=== PATIENT | male | born 1990 | race Caucasian/White ===

== ENCOUNTER 2024-12-30 13:37 | Emergency (ER) | payer BC, SELFPAY ==
--- OUTSIDE RECORDS SUMMARY | 2024-12-30 13:39 | XMS_ITS | Clinical Summary ---
Author Organization [facility] Address [address] [place] [address] Care Team Providers Care Road Crew Member Name Role Phone Wilder Krause MD Primary Care Provider Allergies Active Allergy Reactions Criticality Noted Date Comments Apple (Fruit) Other - Describe In Comment Field 07/09/2023 Gums and mouth itchy Sulfamethoxazole-Tri methoprim Hives 04/11/2021 Medications albuterol HFA (PRO-AIR; VENTOLIN; PROVENTIL) 90 mcg/actuation inhalerIndication s:Cough, unspecified type Inhale 1-2 Puffs by mouth every 4 hours if needed for Shortness Of Breath. 1 Each 1 4 Active Additional Information Patient not taking.Reported on 12/24/2024 dextroamphetamine -amphetamine (Adderall XR) 25 mg Extended-Release capsuleIndication s:Attention deficit hyperactivity disorder (ADHD), unspecified ADHD type Take 1 Capsule (25 mg) by mouth once daily. Active LORATADINE ORAL Take 1 Tablet by mouth each time if needed. Active Active Problems Problem Noted Date Diagnosed Date Attention deficit hyperactivity disorder (ADHD) 01/14/2024 Anxiety and depression 04/11/2021 Encounters Date Type Department Care Team Description 12/24/2024 12:10 PM CDT Ancillary Procedure [facility] [address] [place] [address] 12/24/2024 12:05 PM CDT Ancillary Procedure [facility] [address] [place] [address] 12/24/2024 12:00 PM CDT Office Visit [facility] [address] [place] [address] Baudilio Flores MD Consult (Pain in both wrists Arthralgia) 12/23/2024 11:30 AM CDT Ancillary Procedure [facility] [address] [place] [address] 12/23/2024 9:55 AM CDT Office Visit [facility] [address] [place] [address] Linda Marcus PA Wrist Pain/problem 12/23/2024 E-Consult [facility] [address] [place] [address] Ade Dennison DO 12/23/2024 Travel from Last 3 Months Immunizations Immunization Administration Dates Next Due COVID-19 vaccine (Data Impact-Bio NTech 30mcg/0.3mL) 12YO+ BIVALENT PF, MDV 04/13/2022 COVID-19 vaccine (Pfizer-Bio NTech 30mcg/0.3mL) PF, MDV 04/11/2021 DTP 07/11/1996, 3,1991,1991,1991 HIB PRP-T (ActHIB,Hiberix) 07/19/1992,,1991,1991 INFLUENZA, IIV3 PF (AGE >= 6 MO) 03/27/2024 Influenza, IIV4 04/12/2023, 2,03/17/2021,2017 MMR 07/19/1992 Oral Polio Vaccine 07/11/1996, 3,1991,1991 Tdap 03/23/2021 Family History Medical History Relation Name Comments Hypertension Father Heart failure Maternal Grandfather a t 89 Sudden Paternal Grandfather Relation Name Status Comments Father Maternal Grandfather Paternal Grandfather Social History Tobacco Use Types Packs/Day Years Used Date Smoking Tobacco: Never Smokeless Tobacco: Never Tobacco Cessation:Counseling Given: No Alcohol Use Standard Drinks/Week Comments Yes 0 (1 standard drink = 0.6 oz pur e alcohol) occ PHQ-2 Answer Date Recorded PHQ-2 TOTAL SCORE 0 01/14/2024 Social Connections Answer Date Recorded Do you often feel lonely or isolated from those around you? 0 12/23/2024 Financial Resource Strain Answer Date R ecorded Difficulty of Paying Living Expenses 3 12/23/2024 Difficulty of Paying Living Expenses Not on file 12/23/2024 Food Insecurity Answer Date Recorded Do you worry your food will run out before you are able to buy more? 1 12/23/2024 Transportation Needs Answer Date Record ed Does lack of transportation keep you from medica l appointments? 1 12/23/2024 Does lack of transportation keep you from work, meetings or getting things that you need? 1 12/23/2024 Housing Stability Answer Date Recorded What is your housing situation today? 1 12/23/2024 Utilities Answer Date Recorded Do you have trouble paying f or utilities (for example, heat, electricity, water, phone)? 1 12/23/2024 Sex and Gender Information Value Date Recorded Sex Assigned at Not on file Legal Sex Male 11:30 AM CDT Gender Identity Not on file Sexual Orientation Not on file Obstetrics History Last Filed Vital Signs Vital Sign Reading Time Taken Comments Blood Pressure 134/82 12/24/2024 11:30 AM CDT Pulse 76 12/24/2024 11:30 AM CDT Temperature 36.7 C (98 F) 12/23/2024 9:48 AM CDT Respiratory Rate 20 06/13/2022 12:25 PM PACK WORKER SUPERVISOR Oxygen Saturation 97% 12/23/2024 9:48 AM CDT Inhaled Oxygen Concentration - - Weight 100.7 kg (222 lb) 12/24/2024 11:30 AM CDT Height 186 cm (6' 1.23) 12/24/2024 11:30 AM CDT Body Mass Index 29.11 12/24/2024 11:30 AM CDT Plan of Treatment Upcoming Encounters Date Type Department Care Team (Late st Contact Info) Description 12/31/2024 8:15 AM CDT Ancillary Procedure [facility] [id number] [place] [address] 02/02/2025 8:15 AM CDT Office Visit [facility] [address] [place] [address] Lenin Maxwell PA [address] [place] [address] 06/26/2025 10:30 AM PACK WORKER SUPERVISOR Office Visit [facility] [address] [place] [address] Baudilio Flores MD [address] [place] [address] Health Maintenance Due Date Last Done Comments Hepatitis B series for 19+ (1 of 3 - 19+ 3-dose series) 2010 COVID-19 vaccine series ( season) 2024 04/13/2022, 04/11/2021, 09/02/2020 Depression screening for age 12+ 01/13/2025 01/14/2024, 07/09/2023, 12/21/2021, Additional history exists Influenza Vaccine (#1) 2025 , 04/12/2023, 04/13/2022, Additional history exists BMI (ht and wt on same day) for age 18+ 12/24/2025 12/24/2024, 01/14/2024, 07/09/2023, Additional history exists Tetanus booster 03/23/2031 03/23/2021 HIV for age 15-65 Completed 07/09/2023 Hepatitis C screening for age 18-79 Completed 12/24/2024, 07/09/2023 Pneumococcal series for age 6-49 Aged Out No longer eligible based on patient's age to complete this topic Procedures Procedure Name Priority Date/Time Associated Diagnosis Comments XR SACROILIAC JOINT 3 VIEWS BILATERAL Routine 12/24/2024 12:23 PM CDT Pain in both wrists Arthralgia, unspecified joint Multiple joint pain Chronic low back pain, unspecified back pain laterality, unspecified whether sciatica present XR WRIST 2 VIEWS LEFT Routine 12/24/2024 12:23 PM CDT Pain in both wrists Arthralgia, unspecified joint Multiple joint pain Chronic low back pain, unspecified back pain laterality, unspecified whether sciatica present ANTI HBC Routine 12/24/2024 12:06 PM CDT Pain in both wrists Polyarthralgia Multiple joint pain Chronic low back pain, unspecified back pain laterality, unspecified whether sciatica present ANTI HCV Routine 12/24/2024 12:06 PM CDT Pain in both wrists Polyarthralgia Multiple joint pain Chronic low back pain, unspecified back pain laterality, unspecified whether sciatica present HBSAG (HBS) Routine 12/24/2024 12:06 PM CDT Pain in both wrists Polyarthralgia Multiple joint pain Chronic low back pain, unspecified back pain laterality, unspecified whether sciatica present QUANTIFERON -TB GOLD PLUS 1 TUBE (QUEST) Routine 12/24/2024 12:06 PM CDT Pain in both wrists Polyarthralgia Multiple joint pain Chronic low back pain, unspecified back pain laterality, unspecified whether sciatica present XR HAND 3 VIEWS BILATERAL Routine 12/23/2024 11:35 AM CDT Pain in both wrists Arthralgia, unspecified joint CBC WITH AUTO DIFFERENTIAL Routine 12/23/2024 10:30 AM CDT Arthralgia, unspecified joint BASIC METABOLIC PANEL Routine 12/23/2024 10:30 AM CDT Arthralgia, unspecified joint SEDIMENTATION RATE Routine 12/23/2024 10 :30 AM CDT Arthralgia, unspecified joint C-REACTIVE PROTEIN Routine 12/23/2024 10 :30 AM CDT Arthralgia, unspecified joint RA QUANTITATIVE Routine 12/23/2024 10:30 AM CDT Arthralgia, unspecified joint HLA B 27 DISEASE ASSOCIATION Routine 12/23/2024 10:30 AM CDT Arthralgia, unspecified joint CYCLIC CITRULLINE PEPTIDE Routine 12/23/2024 10:30 AM CDT Arthralgia, unspecified joint ANTI HIV 1/2 Routine 07/09/2023 9:41 AM PACK WORKER SUPERVISOR Screening for HIV (human immunodeficiency virus) from Last 3 Months or Most Recently Relevant to Health Maintenance Results * XR SACROILIAC JOINT 3 VIEWS BILATERAL (12/24/2024 12:23 PM CDT) Anatomical Region Laterality Modality Pelvis, SI JOINTS Digital Radiog georgina 12/24/2024 12:2 3 PM CDT Impressions 12/25/2024 12:01 PM CDT Normal appearance of bilateral sacroiliac joints. No periarticular erosions or bony ankylosis. No fracture. Narrative 12/25/2024 12:01 PM CDT For Patients: As a result of the Cures Act, medical imaging exams and procedure reports are released immediately into your electronic medical record. You may view this report before your referring provider. If you have questions, please contact your health care provider. EXAM: XR SACROILIAC JOINT 3 VIEWS BILATERAL LOCATION: [facility] DATE: 12/24/2024 INDICATION: Pain In Both Wrists Pain In Both Wrists Arthralgia, Unspecified Joint Multiple Joint Pain Chronic Low Back Pain, Unspecified Back Pain Laterality, Unspecified Whether Sciatica Present Chronic Low Back Pain, Unspecified Back Pain Laterality, Unspecified Whether Sciatica Present COMPARISON: None. Procedure Note Ria Joshua MD - 12/25/2024 For Patients: As a result of the Cures Act, medical imagingexams and procedure reports are released immediately into your electronicmedical record. You may view this report before your referring provider.If you have questions, please contact your health care provider. EXAM: XR SACROILIAC JOINT 3 VIEWS BILATERAL LOCATION: [facility] DATE: 12/24/2024 INDICATION: Pain In Both Wrists Pain In Both Wrists Arthralgia,Unspecified Joint Multiple Joint Pain Chronic Low Back Pain, UnspecifiedBack Pain Laterality, Unspecified Whether Sciatica Present Chronic LowBack Pain, Unspecified Back Pain Laterality, Unspecified Whether SciaticaPresent COMPARISON: None. IMPRESSION: Normal appearance of bilateral sacroiliac joints. No periarticularerosions or bony ankylosis. No fracture. Baudilio Flores MD GENERAL IM AGING Final Result * XR WRIST 2 VIEWS LEFT (12/24/2024 12:23 PM CDT) Anatomical Region Laterality Modality WRISTS, WRIST L Digital Radiogra phy 12/24/2024 12:2 3 PM CDT Impressions 12/25/2024 12:01 PM CDT Normal joint spaces and alignment. No fracture. No cortical erosions. Narrative 12/25/2024 12:01 PM CDT For Patients: As a result of the Cures Act, medical imaging exams and procedure reports are released immediately into your electronic medical record. You may view this report before your referring provider. If you have questions, please contact your health care provider. EXAM: XR WRIST 2 VIEWS LEFT LOCATION: [facility] DATE: 12/24/2024 INDICATION: Pain In Both Wrists Pain In Both Wrists Arthralgia, Unspecified Joint Multiple Joint Pain Chronic Low Back Pain, Unspecified Back Pain Laterality, Unspecified Whether Sciatica Present Chronic Low Back Pain, Unspecified Back Pain Laterality, Unspecified Whether Sciatica Present COMPARISON: Bilateral hand radiographs 12/23/2024 Procedure Note Ria Joshua MD - 12/25/2024 For Patients: As a result of the s Act, medical imagingexams and procedure reports are released immediately into your electronicmedical record. You may view this report before your referring provider.If you have questions, please contact your health care provider. EXAM: XR WRIST 2 VIEWS LEFT LOCATION: [facility] DATE: 12/24/2024 INDICATION: Pain In Both Wrists Pain In Both Wrists Arthralgia,Unspecified Joint Multiple Joint Pain Chronic Low Back Pain, UnspecifiedBack Pain Laterality, Unspecified Whether Sciatica Present Chronic LowBack Pain, Unspecified Back Pain Laterality, Unspecified Whether SciaticaPresent COMPARISON: Bilateral hand radiographs 12/23/2024 IMPRESSION: Normal joint spaces and alignment. No fracture. No cortical erosions. Baudilio Flores MD GENERAL IM AGING Final Result * QUANTIFERON??-TB GOLD PLUS 1 TUBE (QUEST) (12/24/2024 12:06 PM CDT) [facility] QUANTIFERON(R)-T B GOLD PLUS, 1 TUBE NEGATIVE NEGATIVE [facility] Comment: Negative test result. M. tuberculosis complex infection unlikely. NIL 0.03 IU/mL [facility] MITOGEN-NIL 8.51 IU/mL [facility] TB1-NIL <0.00 IU/mL [facility] TB2-NIL 0.00 IU/mL [facility] Comment: The Nil tube value reflects the background interferon gamma immune response of the patient's blood sample. This value has been subtracted from the patient's displayed TB and Mitogen results. Lower than expected results with the Mitogen tube prevent false-negative Quantiferon readings by detecting a patient with a potential immune suppressive condition and/or suboptimal pre-analytical specimen handling. The TB1 Antigen tube is coated with the M. tuberculosis-specific antigens designed to elicit responses from TB antigen primed CD4+ helper T-lymphocytes. The TB2 Antigen tube is coated with the M. tuberculosis-specific antigens designed to elicit responses from TB antigen primed CD4+ helper and CD8+ cytotoxic T-lymphocytes. For additional information, please refer to https://education.Lockbox.[employer]/faq/CXR852 (This link is being provided for informational/ educational purposes only.) Blood BLOOD SPECIMEN / Unknown 12/24/2024 12:06 PM CDT 12/24/2024 12:07 PM CDT Narrative [facility] - 12/27/2024 9:18 AM CDT FASTING:YES FASTING: YES Baudilio Flores MD SEND OUTS Final Result Performing Organization Address [facility] Co de Phone Number [employer] [facility] [address] [place] [address], [facility] [address] [place] [address] * HBSAG (HBS) (12/24/2024 12:06 PM CDT) HEPATITIS B SURFACE ANTIGEN NON-REACTI VE NON-REACTI VE [facility] Comment: For additional information, please refer to http://EnergyDeck.Kollabora/faq/OYX066 (This link is being provided for informational/ educational purposes only.) Blood BLOOD SPECIMEN / Unknown 12/24/2024 12:06 PM CDT 12/24/2024 12:07 PM CDT Narrative [facility] - 12/25/2024 2:36 PM CDT FASTING:YES FASTING: YES Baudilio Flores MD SEND OUTS Final Result Performing Organization Address [facility] de Phone Number [employer] [facility] [address] [place] [address], [facility] [address] [place] [address] * ANTI HCV (12/24/2024 12:06 PM CDT) HEPATITIS C ANTIBODY NON-REACTI VE NON-REACT DANIEL [facility] Comment: HCV antibody was non-reactive. There is no laboratory evidence of HCV infection. In most cases, no further action is required. However, if recent HCV exposure is suspected, a test for HCV RNA (test code 82778) is suggested. For additional information please refer to http://EnergyDeck.Kollabora/faq/GPU54k6 (This link is being provided for informational/ educational purposes only.) Blood BLOOD SPECIMEN / Unknown 12/24/2024 12:06 PM CDT 12/24/2024 12:07 PM CDT Narrative [facility] - 12/25/2024 2:36 PM CDT FASTING:YES FASTING: YES Baudilio Flores MD SEND OUTS Final Result Performing Organization Address [facility] de Phone Number [facility] [address] [place] [address], [facility] [address] [facility] [place] [address] * ANTI HBC (12/24/2024 12:06 PM CDT) HEPATITIS B CORE AB TOTAL NON-REACTI VE NON-REACTI VE [facility] Comment: For additional information, please refer to http://education.Kollabora/faq/HID314 (This link is being provided for informational/ educational purposes only.) Blood BLOOD SPECIMEN / Unknown 12/24/2024 12:06 PM CDT 12/24/2024 12:07 PM CDT Narrative [facility] - 12/25/2024 2:36 PM CDT FASTING:YES FASTING: YES Baudilio Flores MD SEND OUTS Final Result Performing Organization Address [facility] de Phone Number [employer] [facility] [address] [place] [address], [facility] [address] [place] [address] * XR HAND 3 VIEWS BILATERAL (12/23/2024 11:35 AM CDT) Anatomical Region Laterality Modality HAND L, HAND R, HANDS Computed R adiography 12/24/2024 1:59 PM CDT Impressions 12/24/2024 1:59 PM CDT 1. No acute osseous injuries or abnormalities are noted. Dictated by Christiano Choi MD @ 12/24/2024 1:59:36 PM Dictated by: Christiano Choi MD @ 12/24/2024 13:59:41 (Electronically Signed) Narrative 12/24/2024 1:59 PM CDT For Patients: As a result of the Cures Act, medical imaging exams and procedure reports are released immediately into your electronic medical record. You may view this report before your referring provider. If you have questions, please contact your health care provider. INDICATION: Wrist Pain in both wrists, Arthralgia TECHNIQUE: Wrist radiograph 3 views bilateral COMPARISON: None FINDINGS: The sensitivity and specificity of the exam are moderately limited by the patient`s inability to lift the arms. Bone: No acute fractures or aggressive bone lesions are identified. Joint: The radiocarpal, carpal, and carpometacarpal joints are unremarkable in appearance. Soft tissue: Unremarkable. No radiopaque foreign bodies are seen. Procedure Note Christiano Choi MD - 12/24/2024 For Patients: As a result of the Cures Act, medical imagingexams and procedure reports are released immediately into your electronicmedical record. You may view this report before your referring provider.If you have questions, please contact your health care provider. INDICATION: Wrist Pain in both wrists, Arthralgia TECHNIQUE: Wrist radiograph 3 views bilateral COMPARISON: None FINDINGS: The sensitivity and specificity of the exam are moderatelylimited by the patient`s inability to lift the arms. Bone: No acute fractures or aggressive bone lesions are identified. Joint: The radiocarpal, carpal, and carpometacarpal joints areunremarkable in appearance. Soft tissue: Unremarkable. No radiopaque foreign bodies are seen. IMPRESSION: 1. No acute osseous injuries or abnormalities are noted. Dictated by Christiano Choi MD @ 12/24/2024 1:59:36 PM Dictated by: Christiano Choi MD @ 12/24/2024 13:59:41 (Electronically Signed) Linda GUILLERMO GENERAL IMAGING Final Result * SEDIMENTATION RATE (12/23/2024 10:30 AM CDT) SED RATE BY MODIFIED WESTERGREN 6 < OR = 15 mm/h [facility] Blood BLOOD SPECIMEN / Unknown 12/23/2024 10:30 AM CDT 12/23/2024 10:30 AM CDT Linda GUILLERMO HEMATOLOGY Final Result Performing Organization Address City/[facility]/ZIP Co de Phone Number [facility] [address] [place] [address], [facility] [address] [place] [address] * HLA B 27 DISEASE ASSOCIATION (12/23/2024 10:30 AM CDT) HLA B27 Negative Negative [facility] Comment: HLA B27 RESULTS REVIEWED BY see note [employer]/ [facility] Comment: Marah Montana, Ph.D., [facility] [employer], Molecular Genetics The B27 allele group of the HLA-B locus is present in 2 to 9% of the general population. About 20% of HLA-B27 carriers develop autoimmune disorders including Ankylosing Spondylitis (), Reactive Arthritis, Psoriatic Arthritis, Undifferentiated Oligoarthritis, Uveitis, or Inflammatory Bowel Disease. The highest association is with , where approximately 95% of patients are HLA-B27 positive. Genetic counseling as needed. Typing performed by PCR and hybridization with sequence specific oligonucleotide probes (SSO) using the FDA-cleared LABType(R) SSO Kit. Blood BLOOD SPECIMEN / Unknown 12/23/2024 10:30 AM CDT 12/23/2024 10:30 AM CDT Linda GUILLERMO SEND OUTS Final Result [employer] [place] [address] [facility] [place], [place] , [facility] [address] [facility] [place], [place] * CYCLIC CITRULLINE PEPTIDE (12/23/2024 10:30 AM CDT) CYCLIC CITRULLINATED PEPTIDE (CCP) AB (IGG) <16 UNITS [facility] Comment: Reference Range Negative: <20 Weak Positive: 20-39 Moderate Positive: 40-59 Strong Positive: >59 Blood BLOOD SPECIMEN / Unknown 12/23/2024 10:30 AM CDT 12/23/2024 10:30 AM CDT Linda GUILLERMO SEND OUTS Final Result Performing Organization Address [facility] Co de Phone Number [facility] [facility] [address] [facility] [address], [place] [phone] [facility] [address] [place] [address] * RA QUANTITATIVE (12/23/2024 10:30 AM CDT) RHEUMATOID FACTOR <10 <14 IU/mL [facility] Blood BLOOD SPECIMEN / Unknown 12/23/2024 10:30 AM CDT 12/23/2024 10:30 AM CDT us Linda GUILLERMO SEND OUTS Final Result Performing Organization Address [facility] de Phone Number [employer] [facility] [address] [place] [address], [place] [phone] [facility] [address] [place] [address] * C-REACTIVE PROTEIN (12/23/2024 10:30 AM CDT) C-REACTIVE PROTEIN 4.5 <8.0 mg/L [facility] Blood BLOOD SPECIMEN / Unknown 12/23/2024 10:30 AM CDT 12/23/2024 10:30 AM CDT Linda GUILLERMO CHEMISTRY Final Result Performing Organization Address [facility]/ZIP Co de Phone Number [facility] [employer] [facility] [address] [place] [address], [facility] [address] [place] [address] * CBC AND DIFFERENTIAL (12/23/2024 10:30 AM CDT) [facility] WHITE BLOOD CELL COUNT 5.1 3.8 - 10.8 Thousand/u L [facility] RED BLOOD CELL COUNT 5.28 4.20 - 5.80 Million/uL [facility] HEMOGLOBIN 15.7 13.2 - 17.1 g/dL [facility] HEMATOCRIT 45.8 38.5 - 50.0 % [facility] MCV 86.7 80.0 - 100.0 fL [facility] MCH 29.7 27.0 - 33.0 pg [facility] MCHC 34.3 32.0 - 36.0 g/dL [facility] Comment: For adults, a slight decrease in the calculated MCHC value (in the range of 30 to 32 g/dL) is most likely not clinically significant; however, it should be interpreted with caution in correlation with other red cell parameters and the patient's clinical condition. RDW 13.0 11.0 - 15.0 % [facility] PLATELET COUNT 190 140 - 400 Thousand/u L [facility] MPV 11.4 7.5 - 12.5 fL [facility] ABSOLUTE NEUTROPHILS 3,111 1,500 - 7,800 cells/uL [facility] ABSOLUTE LYMPHOCYTES 1,316 850 - 3,900 cells/uL [facility] ABSOLUTE MONOCYTES 520 200 - 950 cells/uL [facility] ABSOLUTE EOSINOPHILS 122 15 - 500 cells/uL [facility] ABSOLUTE BASOPHILS 31 0 - 200 cells/uL [facility] NEUTROPHILS 61 % [facility] LYMPHOCYTES 25.8 % [facility] MONOCYTES 10.2 % [facility] EOSINOPHILS 2.4 % [facility] BASOPHILS 0.6 % [facility] Blood BLOOD SPECIMEN / Unknown 12/23/2024 10:30 AM CDT 12/23/2024 10:30 AM CDT us Linda GUILLERMO HEMATOLOGY Final Result [employer] [facility] [address] [place] [address], [facility] [address] [place] [address] * BASIC METABOLIC PANEL (12/23/2024 10:30 AM CDT) [facility] GLUCOSE 96 65 - 99 mg/dL [facility] Comment: Fasting reference interval UREA NITROGEN (BUN) 16 7 - 25 mg/dL [facility] CREATININE 0.88 0.60 - 1.26 mg/dL [facility] EGFR 116 > OR = 60 mL/min/1. 73m2 [facility] BUN/CREATININE RATIO SEE NOTE: 6 - 22 (calc) [facility] Comment: Not Reported: BUN and Creatinine are within reference range. SODIUM 140 135 - 146 mmol/L [facility] POTASSIUM 4.2 3.5 - 5.3 mmol/L [facility] CHLORIDE 104 98 - 110 mmol/L [facility] CARBON DIOXIDE 28 20 - 32 mmol/L [facility] ELECTROLYTE BALANCE 8 7 - 17 mmol/L (calc) [facility] CALCIUM 9.5 8.6 - 10.3 mg/dL [facility] Blood BLOOD SPECIMEN / Unknown 12/23/2024 10:30 AM CDT 12/23/2024 10:30 AM CDT us Linda GUILLERMO CHEMISTRY Final Result Performing Organization Address [facility]/ZIP Co de Phone Number [employer] [facility] [address] [place] [address], [employer] [address] [facility] [place] [address] * ANTI HIV 1/2 (07/09/2023 9:41 AM PACK WORKER SUPERVISOR) HIV-1/HIV-2 SCREEN Non-Reacti ve Non-Reacti ve 07/09/2023 5:35 PM PACK WORKER SUPERVISOR [facility] Comment:HIV-1 p24 and HIV-1/ HIV-2 Ab Not Detected. Blood BLOOD SPECIMEN / Unknown Venipuncture / Unknown 07/09/2023 9:41 AM PACK WORKER SUPERVISOR 07/09/2023 9:42 AM PACK WORKER SUPERVISOR us Wilder Krause MD SEND OUTS Final Result [facility] [address] [place] [address], [place] from Last 3 Months or Most Recently Relevant to Health Maintenance Insurance [employer] [place] [address] Crew Member Relationship Specialty Start Date End Date Wilder Krause MD [address] [place], [place] [id number] PCP - General Family Practice 09/19/21
[2024-12-30 13:40] VITALS: BP 143/93; PULSE 117; RESP 18; TEMP 37.3; O2SAT 98; BMI 29.3
--- NOTE | 2024-12-30 13:52 | ED.GENADULT ---
HPI - General Adult General Date Seen: 12/30/24 Chief complaint: Skin/Abscess/Foreign Body Stated complaint: rash all over body Time Seen by Provider: 12/30/24 13:39 History of Present Illness HPI narrative: 34 yo M Related Data Home Medications ?Medication ?Instructions ?Recorded ?Confirmed dextroamphetamine-amphetamine ER 1 cap PO QAM 12/30/24 12/30/24 25 mg 24hr capsule,extend release Previous Rx's ?Medication ?Instructions ?Recorded cetirizine 10 mg tablet (Zyrtec) 10 mg PO BID #15 tabs 12/30/24 prednisone 20 mg tablet 60 mg (3 x 20 mg) PO DAILY 5 days 12/30/24 #15 tabs Allergies Allergy/AdvReac Type Severity Reaction Status Date / Time Sulfa (Sulfonamide Allergy Severe Verified 12/30/24 13:45 Antibiotics) Exam Const: Vital Signs, click to edit/add: Vital Signs - 24 hr 12/30/24 13:40 Temperature 99.2 F Pulse Rate [Right Pulse Oximeter] 117 H Respiratory Rate 18 Blood Pressure [Ri ght Upper Arm] 143/93 H Pulse Oximetry 98 Oxygen Delivery Me thod Room Air Course Vital Signs Vital signs: Initial Vital Signs Temperature 99.2 F 12/30/24 13:40 Temperature Source Temporal Artery Scan 12/30/24 13:40 Pulse Rate 117 H 12/30/24 13:40 Pulse Rhythm Regular 12/30/24 13:40 Pulse Strength 3+ Normal 12/30/24 13:40 Respiratory Rate 18 12/30/24 13:40 Blood Pressure 143/93 H 12/30/24 13:40 Blood Pressure Mean 109 H 12/30/24 13:40 Blood Pressure Position Sitting 12/30/24 13:40 Pulse Oximetry 98 12/30/24 13:40 Oxygen Delivery Method Room Air 12/30/24 13:40 Vital Signs Temperature 99.2 F 12/30/24 13:40 Pulse Rate 117 H 12/30/24 13:40 Respiratory Rate 18 12/30/24 13:40 Blood Pressure 143/93 H 12/30/24 13:40 Pulse Oximetry 98 12/30/24 13:40 Oxygen Delivery Method Room Air 12/30/24 13:40 Temperature 99.2 F 12/30/24 13:40 Pulse Rate 117 H 12/30/24 13:40 Respiratory Rate 18 12/30/24 13:40 Blood Pressure 143/93 H 12/30/24 13:40 Pulse Oximetry 98 12/30/24 13:40 Oxygen Delivery Method Room Air 12/30/24 13:40 Medications Administered Medications: Discontinued Medications Generic Name Dose Route Start Last Admin Trade Name Alexandra PRN Reason Stop Dose Admin Cetirizine HCl 10 mg 12/30/24 14:14 12/30/24 14:27 Cetirizine Hcl 10 Mg Tablet PO 12/30/24 14:15 10 mg ONCE ONE Administration Prednisone 60 mg 12/30/24 14:14 12/30/24 14:27 Prednisone 20 Mg Tablet PO 12/30/24 14:15 60 mg ONCE ONE Administration Medical Decision Making MDM Narrative Medical decision making narrative: This patient presents for evaluation of hives that began on his elbows and forearms several days ago and now spread to involve his lower arms, upper arms, back, abdomen, legs.. Signs and symptoms are consistent with allergic reaction. However, we did not have any clear allergen to explain the reaction. No known new exposures. He also has had a cough for a couple weeks so consider possible viral exanthem. No airway involvement, bronchospasm, GI symptoms, hypotension, or other sign of anaphylaxis. Patient was treated here with medications as noted above. Symptoms improved after meds. Will send home with steroids, antihistamines. Given chronology of the rash and slow spread, I do not think that he is at high risk to develop severe anaphylaxis. Potential for progressing reaction was discussed. Return of anaphylactic symptoms were discussed with patient and they were instructed to call 911 should these symptoms occur. Given current state, lack of serious systemic symptoms, lack of respiratory difficulty and no oral or pharyngeal swelling, would not admit at this time for anaphylaxis. There is no signs of anaphylactic shock. Patient also notes that he has elevated blood pressure and heart rate. He is very anxious about this. Suspect there is some component of anxiety and stress. He also notes recent of his cousin and recent stressful workup (negative so far) for autoimmune disease and psoriatic arthritis. Discharge Plan Discharge Clinical Impression: Hives Patient Disposition: Home, Self-Care Condition: Stable Instructions: Urticaria (ED), General Allergic Reaction (ED) Additional Instructions: As we discussed, right now we suspect that your rash are hives related to an allergic reaction. At this point we do not know the cause of the allergic reaction. We can treat this with prednisone. Take her prednisone today and once daily for 5 more days. You can also treat the hives for symptomatic relief with antihistamines. You can use nondrowsy antihistamine such as Zyrtec during the day and regular and Benadryl in the evening or at bedtime. Be careful because Benadryl can cause dizziness and drowsiness If you have worsening rash or any swelling in your throat, dizziness or lightheadedness, worsening trouble breathing, or any other problems, please come back to the ER right away. If you are not completely improved within 3-4 days, please return to the ER or recheck with her doctor We noticed that your blood pressure measurement is a little bit higher than normal today. Please keep an eye on this and measure it next week. Recheck with your regular doctor for blood pressure checkup in about 1-2 weeks. Prescriptions: New prednisone 20 mg tablet 60 mg PO DAILY 5 Days Qty: 15 0RF cetirizine [Zyrtec] 10 mg tablet 10 mg PO BID Qty: 15 0RF No Action dextroamphetamine-amphetamine 25 mg capsule,extended release 24hr 1 cap PO QAM Stand Alone Forms: Verified Person Info Instructions
[2024-12-30] MEDS: CETIRIZINE HCL 10 MG TABLET PO (14:27)
--- NOTE | 2025-01-09 12:59 | ED_ITS ---
HPI - General Adult General Date Seen: 12/30/24 Chief complaint: Skin/Abscess/Foreign Body Stated complaint: rash all over body Time Seen by Provider: 12/30/24 13:39 History of Present Illness HPI narrative: This is an addendum to my ER note from 12/30. Pleasant 34-year-old gentleman presenting today with a rash hives, on his body. The hives 1st began on his elbows and forearms several days ago and now spread to his forearms, upper arms, back, abdomen, and both legs. He is not having any shortness of breath, trouble breathing, abdominal pain, lightheadedness or other symptoms of anaphylaxis. He is not sure what is causing the rash. He does not have any clear allergen to explain the reaction. No known new exposures. Incidentally, he has had a cough for a couple weeks but that is been overall getting better. Not worsening lately. Related Data Home Medications ?Medication ?Instructions ?Recorded ?Confirmed dextroamphetamine-amphetamine ER 1 cap PO QAM 12/30/24 12/30/24 25 mg 24hr capsule,extend release Previous Rx's ?Medication ?Instructions ?Recorded cetirizine 10 mg tablet (Zyrtec) 10 mg PO BID #15 tabs 12/30/24 prednisone 20 mg tablet 60 mg (3 x 20 mg) PO DAILY 5 days 12/30/24 #15 tabs Allergies Allergy/AdvReac Type Severity Reaction Status Date / Time Sulfa (Sulfonamide Allergy Severe Verified 12/30/24 13:45 Antibiotics) Exam Narrative: Exam Narrative: Constitutional: Appears well-developed and well-nourished. Alert. Conversant. Non toxic. HENT: Head: Atraumatic. Nose: Nose normal. Mouth/Throat: Oral mucosa is clear and moist. no trismus. Pharynx normal. To nsils symmetric. No tonsillar enlargement, erythema, or exudate. No swelling Eyes: Conjunctivae normal. EOM normal. Pupils equal, round, and reactive to light. No scleral icterus. Neck: Normal range of motion. Neck supple. No tracheal deviation present. Cardiovascular: Normal rate, regular rhythm. No gallop. No friction rub. No murmur heard. Pulmonary/Chest: Effort normal. No stridor. No respiratory distress. No wheezes. No rales. No rhonchi . No tenderness. Abdominal: Soft.No distension. No mass. No tenderness. No rebound. No guarding. Musculoskeletal: RUE: Normal range of motion. No tenderness. No deformity LUE: Normal range of motion. No tenderness. No deformity RLE: Normal range of motion. No edema. No tenderness. No deformity LLE: Normal range of motion. No edema. No tenderness. No deformity Neurological: Alert and oriented to person, place, and time. Normal strength. CN II-VII intact. No sensory deficit. GCS eye subscore is 4. GCS verbal subscore is 5. GCS motor subscore is 6. Normal coordination Skin: Skin is pink, warm, dry. No diaphoresis or pallor. He does have scattered erythematous slightly raised macules on the skin of his back, abdomen, forearms, thighs, lower legs. No lesions on his palms or soles. There is no pustules or vesicles. Consistent with hives. No pallor. Normal capillary refill. Psychiatric: Normal mood. Normal affect. Course Vital Signs Vital signs: Initial Vital Signs Temperature 99.2 F 12/30/24 13:40 Temperature Source Temporal Artery Scan 12/30/24 13:40 Pulse Rate 117 H 12/30/24 13:40 Pulse Rhythm Regular 12/30/24 13:40 Pulse Strength 3+ Normal 12/30/24 13:40 Respiratory Rate 18 12/30/24 13:40 Blood Pressure 143/93 H 12/30/24 13:40 Blood Pressure Mean 109 H 12/30/24 13:40 Blood Pressure Position Sitting 12/30/24 13:40 Pulse Oximetry 98 12/30/24 13:40 Oxygen Delivery Method Room Air 12/30/24 13:40 Vital Signs Temperature 99.2 F 12/30/24 13:40 Pulse Rate 117 H 12/30/24 13:40 Respiratory Rate 18 12/30/24 13:40 Blood Pressure 143/93 H 12/30/24 13:40 Pulse Oximetry 98 12/30/24 13:40 Oxygen Delivery Method Room Air 12/30/24 13:40 Temperature 99.2 F 12/30/24 13:40 Pulse Rate 117 H 12/30/24 13:40 Respiratory Rate 18 12/30/24 13:40 Blood Pressure 143/93 H 12/30/24 13:40 Pulse Oximetry 98 12/30/24 13:40 Oxygen Delivery Method Room Air 12/30/24 13:40 Medications Administered Medications: Discontinued Medications Generic Name Dose Route Start Last Admin Trade Name Alexandra PRN Reason Stop Dose Admin Cetirizine HCl 10 mg 12/30/24 14:14 12/30/24 14:27 Cetirizine Hcl 10 Mg Tablet PO 12/30/24 14:15 10 mg ONCE ONE Administration Prednisone 60 mg 12/30/24 14:14 12/30/24 14:27 Prednisone 20 Mg Tablet PO 12/30/24 14:15 60 mg ONCE ONE Administration Discharge Plan Discharge Clinical Impression: Hives Patient Disposition: Home, Self-Care Condition: Stable Instructions: Urticaria (ED), General Allergic Reaction (ED) Additional Instructions: As we discussed, right now we suspect that your rash are hives related to an allergic reaction. At this point we do not know the cause of the allergic reaction. We can treat this with prednisone. Take her prednisone today and once daily for 5 more days. You can also treat the hives for symptomatic relief with antihistamines. You can use nondrowsy antihistamine such as Zyrtec during the day and regular and Benadryl in the evening or at bedtime. Be careful because Benadryl can cause dizziness and drowsiness If you have worsening rash or any swelling in your throat, dizziness or lightheadedness, worsening trouble breathing, or any other problems, please come back to the ER right away. If you are not completely improved within 3-4 days, please return to the ER or recheck with her doctor We noticed that your blood pressure measurement is a little bit higher than normal today. Please keep an eye on this and measure it next week. Recheck with your regular doctor for blood pressure checkup in about 1-2 weeks. Prescriptions: New prednisone 20 mg tablet 60 mg PO DAILY 5 Days Qty: 15 0RF cetirizine [Zyrtec] 10 mg tablet 10 mg PO BID Qty: 15 0RF No Action dextroamphetamine-amphetamine 25 mg capsule,extended release 24hr 1 cap PO QAM Stand Alone Forms: [email or web address] Info Instructions
== END 2024-12-30 14:54 | disposition home or self-care (01) ==
LOC: ED 14:29
PROVIDERS: Emergency Provider Emergency Medicine; PCP Family Medicine
DX: L50.9 Urticaria, unspecified (principal); T78.40XA Allergy, unspecified, initial encounter
CPT/HCPCS: 99282; 99283; A9270; J7512